=== PATIENT | female | born 1985 | race Hispanic/Latino ===

== ENCOUNTER 2017-05-07 20:14 | Emergency (ER) | payer BC, OTHER ==
[2017-05-07] MEDS ORDERED: Lactated Ringer's 1,000 ML IV SCH (21:15)
[2017-05-07 21:31] VITALS: BMI 41.3
[2017-05-07 22:14] LABS: RBC URINE 2 /hpf (0-3); URINE BACTERIA FEW (<OCC); URINE BILIRUBIN NEGATIVE (NEGATIVE); URINE BLOOD NEGATIVE (NEGATIVE); URINE COLOR YELLOW (YELLOW); URINE GLUCOSE (UA) NEG (Normal); URINE KETONE 20 mg/dL (NEGATIVE); URINE LEUKOCYTE ESTERASE NEG Leu/uL (Negative); URINE PROTEIN NEGATIVE (NEGATIVE); URINE UROBILINOGEN 0.2-1.0 mg/dL (0.2-1.0); WBC URINE 2 /hpf (0-5)
[2017-05-08 03:15] VITALS: BP 111/70; PULSE 88
--- NOTE | 2017-05-08 08:33 | OBHP ---
Datetime: 05/07/2017 21:14 IP Adm Impression: Term, intrauterine IP Admit Plan: Observation/Evaluation; Discharge home Admit Comment, IP Provider: CC: Ctx HPI: 32 YO 37.3wks IUP presents to [facility] for ctx. Per pt, ctx started around 1PM and have inte nsified over the past few hours. They started [id number] and now are q6 mins. Pt endorses good FM, no BV , no LOF and endorses ctx. ObHx: 2 EAB @4-8wks, 1x elective termination @ 20 wks for anencephaly GynHx: Normal Paps per pt, hx of chlamydia (per chart review) PMH: denies SurgHx: appendectomy 2009, togue tied surg at 16 FH: hx of cancer in materal side of family SH: denies smoking, ETOH, and illicit drug use Allergies: Penicillin-rash Meds: PNV PE: VS stable GEN: NAD, uncomfortably with ctx Cardio: S1S2 no M/G/R resp: vesicular breathing b/l Abdomen: Gravid, NT, BS+ neuro: AAO x 3 Extre: minimal edema bilaterally Cervx: closed/high monitor: 120, moderate variability-catagory I bedside u/s: vertex presentation Assessment/Plan: 32 YO @ 37.3 wks IUP (MELLISSA 05/25/17) presents to [facility] for ctx. -continue monitor -vitals -administer IV fluids -clean catch UA -will continue to observe and reevaluate Pt reassesed and reevaluated. She states that her ctx are not as often as when she came. s/p IV fl uids, UA appreciated was neg. Encouraged to increase fluid intake. Pt not currently in active labor. Given labor precautions. Follow up with provider, next apt on 05/10/17. Phyllis Molina, PGY I OB attending addendum: Patient seen and examined by me with Dr. Maria. Agree with above assessment and plan. I: Emigdio Erazo. False Labor P: Labor precautions Follow-up with OB appointment as scheduled Increase water intake. Pelvic Type - PN: Adequate Extremities - PN: Normal Abdomen - PN: Normal Back - PN: Not Done Breast - PN: Normal Lungs - PN: Normal Heart - PN: Normal Thyroid - PN: Not Done Neurologic - PN: Normal HEENT - PN: Normal General - PN: Normal FHR - Baseline A Provider: 120 EGA AdmitDate IP: 37.3 Vital Signs Provider: Reviewed; Within Normal Limits IP Chief Complaint: Uterine contractions NICHD Variability Prov Fetus A: Moderate 6-25bpm NICHD Accel Fetus A IP Provider: 15X15 FHR Category Provider Fetus A: Category I Dilatation, Provider: closed Station, Provider: high Genitourinary Exam: Normal DTRs - PN: Not Done Datetime: 05/01/2017 19:14 Membranes, Provider: Intact Contraction Comments Provider: Q2-5 NICHD Decel Fetus A IP Provider: None Effacement, Provider: 0
== END 2017-05-07 22:40 | disposition home or self-care (01) ==
LOC: H.EROB2 20:14
DX: O26.93 Pregnancy related conditions, unspecified, third trimester (principal); R10.2 Pelvic and perineal pain; O47.1 False labor at or after 37 completed weeks of gestation; Z3A.37 37 weeks gestation of pregnancy; O09.293 Supervision of pregnancy with other poor reproductive or obstetric history, third trimester
CPT/HCPCS: 81003; 99283; J7120

== ENCOUNTER 2017-05-26 08:58 | Inpatient (IN) | payer BC, OTHER ==
[2017-05-27 20:35] VITALS: BMI 43.0
[2017-05-27 21:42] LABS: BASO # 0.1 K/uL (0.0-0.2); BASO % 0.5 % (0.0-2.0); EOS # 0.2 K/uL (0.0-0.7); EOS % 1.2 % (0.0-4.0); LYMPH # 2.8 K/uL (1.0-4.3); LYMPH % 20.8 % (20.0-40.0); MEAN CELL VOLUME 84.2 fl (81.0-99.0); MEAN CORPUSCULAR HEMOGLOBIN 27.8 pg (27.0-31.0); MEAN PLATELET VOLUME 9.8 fl (7.2-11.7); MONO # 0.8 K/uL (0.0-0.8); MONO % 5.6 % (0.0-10.0); NEUT # 9.6 K/uL (1.8-7.0); NEUT % 71.9 % (50.0-75.0); RED CELL DISTRIBUTION WIDTH 13.7 % (11.5-14.5); WHITE BLOOD COUNT 13.4 K/uL (4.8-10.8)
--- NOTE | 2017-05-28 07:11 | OBADHP ---
Datetime: 05/27/2017 21:30 Admit Comment, IP Provider: IUP at 40+w EDC May 25 sent for IOL. post date; no SROM/VB/CTX. ..She had +FM PNC: CP Dr Briones PMH: obese PSH: denies NKA POBH: 3 elective TOP; TOP for anencephaly PGYNH: Hx Chl 2009 ; HPV 2015 A: IUP at 40w postdate preg obese PLAN: admit to L_D Discussion with pt about IOL, labor, delivery, medications, pain management, delivrey and postpart um care. She agrees to start with Cervidil - placend intravaginally Pelvic Type - PN: Adequate Extremities - PN: Normal Abdomen - PN: Normal Back - PN: Normal Lungs - PN: Normal Heart - PN: Normal Thyroid - PN: Normal Neurologic - PN: Normal HEENT - PN: Normal General - PN: Abnormal Presentation-Admit: Vertex FHR - Baseline A Provider: 120 Membranes, Provider: Intact Pool Provider: Negative IP Hx Assessment: The History has been Reviewed and is Current IP Chief Complaint: Other NICHD Variability Prov Fetus A: Moderate 6-25bpm NICHD Accel Fetus A IP Provider: 15X15 FHR Category Provider Fetus A: Category I NICHD Decel Fetus A IP Provider: None Dilatation, Provider: 0 Effacement, Provider: 0 Station, Provider: high Genitourinary Exam: Normal DTRs - PN: Normal EGA AdmitDate IP: 40.2 IP Adm Impression: Term, intrauterine ; No Active Labor; Intact Membranes IP Admit Plan: Admit to unit; Initiate labor induction protocol Datetime: 05/07/2017 21:14 Breast - PN: Normal Vital Signs Provider: Reviewed; Within Normal Limits Datetime: 05/01/2017 19:14 Contraction Comments Provider: Q2-5 Datetime: 05/01/2017 13:42 IP Chief Complaint Other: abdominal pain Nitrazine Provider: Negative
--- NOTE | 2017-05-28 11:20 | OBPN ---
Datetime: 05/28/2017 11:15 IP Progress Impression Other: Post-dates IP Procedures: Sterile Vag Exam IP Progress Plan: Cervical Ripening Membranes, Provider: Intact FHR - Baseline A Provider: 130's IP Progress Note Comment: 32 yo at 40+3 wks for post-dates induction of labor s/p cervidil Will start oral misoprostol 50 mcg q 4 (max 6 doses) FHT reassuring GBS negative Vital Signs Provider: Reviewed NICHD Accel Fetus A IP Provider: 15X15 FHR Category Provider Fetus A: Category I NICHD Variability Prov Fetus A: Moderate 6-25bpm Dilatation, Provider: 0 Effacement, Provider: 60 Station, Provider: -3 NICHD Decel Fetus A IP Provider: None Datetime: 05/27/2017 21:30 Pool Provider: Negative Presentation-Admit: Vertex
[2017-05-28] MEDS: Lactated Ringer's 1,000 ML IV SCH (18:19)
[2017-05-28] MEDS ORDERED: Nalbuphine 20 mg/ml Inj (1 ml) IVP PRN (19:47)
[2017-05-29] MEDS: Lactated Ringer's 1,000 ML IV SCH ×2 (04:00→10:05)
--- NOTE | 2017-05-29 07:59 | OBPN ---
Datetime: 05/29/2017 07:48 IP Progress Impression Other: Failed induction IP Informed Consent Obtain: Section Delivery; Risks, Benefits and Alternatives Discussed IP Procedures: Sterile Vag Exam IP Progress Plan: Deliver- Section Membranes, Provider: Intact FHR - Baseline A Provider: 120's IP Progress Note Comment: 32 yo at 40+4 wks w/ failed induction of labor for post-dates Discussed w/ pt and her Consents for surgery and blood signed Will proceed w/ c/s today NICHD Accel Fetus A IP Provider: 15X15 FHR Category Provider Fetus A: Category I NICHD Variability Prov Fetus A: Moderate 6-25bpm Dilatation, Provider: 0 Effacement, Provider: 60 Station, Provider: -3 NICHD Decel Fetus A IP Provider: None
[2017-05-29] MEDS ORDERED: Oxytocin 30 UNITS in Sodium Chloride 0.9% 500 ML IV SCH (08:15)
[2017-05-29] MEDS ORDERED: Bicitra 30 ML UD PO ONE ×2 (09:01→09:18)
[2017-05-29] MEDS ORDERED: Phenylephrine 10 mg/ml Inj ONE (09:07)
[2017-05-29] MEDS ORDERED: ePHEDrine 50 mg/ml Inj ONE (09:08)
[2017-05-29] MEDS ORDERED: Morphine 1 mg/ml preservative-free Inj(Duramorph) ONE (09:09)
[2017-05-29] MEDS ORDERED: DiphenhydrAMINE 50 mg/ml Inj IVP PRN ×2 (12:05→13:48)
[2017-05-29] MEDS ORDERED: Oxycodone/Acetaminophen 5/325 mg Tab PO PRN ×2 (12:05→13:48)
[2017-05-29] MEDS ORDERED: Simethicone 80 mg Chewtab PO SCH (16:00)
[2017-05-29] MEDS: Simethicone 80 mg Chewtab PO SCH ×2 (16:02→22:52)
[2017-05-30 06:36] LABS: HEMATOCRIT 32.5 % (34.0-47.0); MEAN CELL VOLUME 83.3 fl (81.0-99.0); MEAN CORPUSCULAR HEMOGLOBIN 28.2 pg (27.0-31.0); MEAN CORPUSCULAR HGB CONC 33.9 g/dL (33.0-37.0); RED CELL DISTRIBUTION WIDTH 13.7 % (11.5-14.5)
[2017-05-30] MEDS: Simethicone 80 mg Chewtab PO SCH ×4 (07:34→21:47)
--- NOTE | 2017-05-30 09:36 | OBDS ---
[facility]IV[facility] PERSONNEL Delivery Doctor: Sue Briones MD Stitch Bonding Machine Tender: Nicole Baldwin RN Anesthesiologist: Monique Olguin MD MATERNAL INFORMATION Delivery Anesthesia: Spinal Medications in Delivery: Pitocin 30 mu/500 mL, Pitocin 20 mu/1000 mL Estimated Blood Loss (ml): 800 Placenta Cultured: No Maternal Complications: Other Other Maternal Complications: Failed Induction Provider Comments: Pre-op dx: 32 yo at 40+4 wks w/ failed induction of labor for post-dates Post-op dx: Same Procedure: Primary low transverse section Surgeon: [employer] Accounting Manager: Dr. Cortes Masters, the hospitalist Anesthesia: Spinal Findings: Viable female infant delivered through clear fluid at 11:46am, Apgars 9 and 9. Wt 8#8.8, 3875 gms Nl appearing uterus, tubes and ovaries. Complications: None EBL: 800mL LABOR SUMMARY EDC: 05/25/2017 00:00 No. Babies in Womb: 1 Attempted: No Labor Anesthesia: None LABOR INFORMATION Reason for Induction: Postterm Cervical Ripening Agents: Cervidil; Cytotec @ Oxytocin: N/A Group B Beta Strep: Negative Antibiotics # of Doses: 2 Antibiotics Time of Last Dose: 1003 Steroids Given: None Reason Steroids Not Administered: Not Applicable MEMBRANES Membranes Rupture Method: Artificial Rupture of Membranes: 05/29/2017 11:46 Length of Rupture (hrs): 0.00 Amniotic Fluid Color: Clear Amniotic Fluid Amount: Moderate Amniotic Fluid Odor: None STAGES OF LABOR Stage 3 hrs: 0 Stage 3 min: 1 CSECTION DELIVERY Primary Indication: Failed Induction CSection Urgency: Non Elective CSection Incidence: Primary Labor: Labor Elective: Nonelective CSection Incision: Lower Uterine Transverse BABY A INFORMATION Delivery Date/Time: 05/29/2017 11:46 Method of Delivery: Born in Route : No : N/A Forceps: N/A Vacuum Extraction: N/A Shoulder Dystocia : No SHOULDER DYSTOCIA BABY A Delivery Date/Time: 05/29/2017 11:46 PRESENTATION/POSITION BABY A Presentation: Cephalic Cephalic Presentation: Vertex Breech Presentation: N/A PLACENTA INFORMATION BABY A Placenta Delivery Time : 05/29/2017 11:47 Placenta Method of Delivery: Expressed Placenta Status: Delivered SCORES BABY A Heart Rate 1 min: >100 bpm Resp Effort 1 min: Good Cry Reflex Irritability 1 min: Cough or Sneeze or Pulls Away Muscle Tone 1 min: Active Motion Color 1 min: Body [place], Extremities Blue Resuscitation Effort 1 min: N/A SCORE 1 MIN: 9 Heart Rate 5 min: >100 bpm Resp Effort 5 min: Good Cry Reflex Irritability 5 min: Cough or Sneeze or Pulls Away Muscle Tone 5 min: Active Motion Color 5 min: Body [place], Extremities Blue Resuscitation Effort 5 min: N/A SCORE 5 MIN: 9 INFORMATION BABY A Gestational Age at Delivery: 40.3 Gestational Status: Term Outcome : Liveborn Infant Condition : Stable Infant Sex: Female IDENTIFICATION/MEDS BABY A ID Band Number: [id number] ID Band Location: Left Leg; Left Arm WEIGHT/LENGTH BABY A Birthweight (gms): 3875 Infant Weight (lb): 8 Weight (oz): 9 CORD INFORMATION BABY A No. Cord Vessels: 3 Nuchal Cord : Around Neck x1, Loose Cord Blood Taken: Yes Suction: Mouth; Nose
--- NOTE | 2017-05-30 14:54 | OBPPN ---
Datetime: 05/30/2017 14:49 PP Pain Prov: Within normal limits PP Nausea Prov: Denies PP Flatus Prov: Yes PP Breasts Prov: Normal PP Heart Prov: Normal PP Lungs Prov: Normal PP Abdomen/Uterus Prov: Normal PP Lochia Prov: Normal PP Vulva/Perineum Prov: Normal PP CVA Tenderness Prov: Normal PP Extremities Prov: Normal PP Comments Phys Exam Prov: fundus under umbilicus incision clean/dry/intact PP Impression Prov: Normal progression PP Plan Prov: Continue present management PP Progress Note Prov: Patient denies CP, no SOB, no N/V, tolerating PO diet, ambulating/voiding wel l, mild lochia, +flatus, abdominal pain tolerable with meds A/P POD #1 1. Reg diet 2. Motrin/Percocet prn pain 3. Colace/dulcolax prn constipation 4. Encourage ambulation/ IP PP Procedures: None Vital Signs Provider PP: Reviewed; Within Normal Limits
[2017-05-30] MEDS: Oxycodone/Acetaminophen 5/325 mg Tab PO PRN ×2 (15:49→20:14)
[2017-05-31] MEDS: Oxycodone/Acetaminophen 5/325 mg Tab PO PRN ×4 (01:29→21:30)
[2017-05-31] MEDS: Simethicone 80 mg Chewtab PO SCH ×5 (05:14→21:31)
--- NOTE | 2017-05-31 09:21 | OBPPN ---
Datetime: 05/31/2017 09:18 PP Pain Prov: Within normal limits PP Nausea Prov: Denies PP Flatus Prov: Yes PP Breasts Prov: Not Done PP Heart Prov: Normal PP Lungs Prov: Normal PP Abdomen/Uterus Prov: Normal PP Lochia Prov: Not Done PP Vulva/Perineum Prov: Not Done PP CVA Tenderness Prov: Normal PP Extremities Prov: Normal PP C/S Incision Prov: Normal PP Progress Prov: Normal PP Impression Prov: Normal progression PP Progress Note Prov: Postoperative day #2 Patient doing well voiding without difficulty. Minimal lochia passing flatus Vital signs stable afebrile Incision clean dry and intact Extremities no Homans Postoperative day #2 Encourage ambulation, regular diet, analgesia as needed, anticipate discharge in a.m. Vital Signs Provider PP: Reviewed
[2017-06-01] MEDS: Oxycodone/Acetaminophen 5/325 mg Tab PO PRN (04:34)
[2017-06-01] MEDS: Simethicone 80 mg Chewtab PO SCH ×2 (04:35→09:08)
--- NOTE | 2017-06-01 08:39 | OP ---
PROCEDURE DATE: 05/29/2017 PREOPERATIVE DIAGNOSES: A 32-year-old 5, para 0-0-4-0 at 40 weeks and 4 days with failed induction of labor for postdate. POSTOPERATIVE DIAGNOSES: A 32-year-old 5, para 0-0-4-0 at 40 weeks and 4 days with failed induction of labor for postdate. PROCEDURE: Primary low transverse section. SURGEON: Rodolfo Briones MD. OPEN TENTER OPERATOR: Cortes Masters DO, the hospitalist. Dr. Masters was the surgical instrument technician and participated in the surgery for the entire duration of the case. He helped create exposure. He also helped maintain hemostasis, operated throughout the case on the side of the patient that was across from him and assisted in the delivery of the infant by applying fundal pressure. This case could not have been completed without his assistance. TYPE OF ANESTHESIA: Spinal. FINDINGS: A viable female infant delivered through clear fluid at 11:46 a.m. Apgars 9 and 9 at one and five minutes respectively. The weight was 8 pounds 8 ounces or 3875 grams. Normal-appearing uterus, tubes and ovaries. ESTIMATED BLOOD LOSS: About 800 mL. COMPLICATIONS: None. DESCRIPTION OF PROCEDURE: The patient was taken to the operating room where spinal was placed. The patient was prepped and draped in the usual sterile fashion in the dorsal supine position with a leftward tilt. The spinal was tested and found to be adequate. A Pfannenstiel skin incision was then made with a scalpel and carried through to the underlying layer of fascia with the Bovie. The fascia was incised in the midline and extended laterally with the Bovie over a Evette. The inferior aspect of the fascial incision was then grasped with the Maday clamps, elevated and the underlying rectus muscles were dissected off bluntly and with the Bovie. Attention was then turned to the superior aspect of this incision, which in a similar fashion was grasped, tented up with the Maday clamps and the rectus muscles were dissected off bluntly and with the Bovie. The rectus muscles were then in the midline. The peritoneum was identified, tented up and entered sharply with the Metzenbaum scissors. The peritoneal incision was then extended superiorly and inferiorly with good visualization of the bladder. The bladder blade was then inserted and the vesicouterine peritoneum was identified, grasped with pickups and entered sharply with the Metzenbaum scissors. The incision was then extended laterally and the bladder flap was created digitally. The bladder blade was then reinserted and lower uterine segment was incised in transverse fashion with the scalpel. The uterine incision was then extended laterally with a bandage scissors. The bladder blade was removed. The infant's head delivered atraumatically. The nose and mouth were bulb suctioned and the cord was clamped and cut. The infant was handed off to the awaiting library acquisitions technician. Cord blood was collected. The placenta was then delivered as the uterus was massaged. The uterus was then exteriorized and cleared of all clots and debris with a dry sponge curettage. The uterine incision was then repaired with 0 Vicryl in a running locked fashion. A [id number] stitch was then placed at the right side of the incision for hemostasis. The abdomen was then well irrigated. The uterus was then returned to the abdomen. The gutters were cleared of all clots. It should be mentioned that prior to the delivery of the baby, the right rectus muscle was cut about 2 cm to make more room for the baby to lift for the delivery. The peritoneum was then repaired with 2-0 chromic in a running fashion. A stitch was then placed to reapproximate the right rectus muscle where it had been cut. A single stitch of the 2-0 chromic was then placed to reapproximate the rectus muscle. The fascia was then reapproximated with 0 Vicryl in a running fashion. The subcutaneous fat was well irrigated. The Bovie was applied to small bleeders. Three layers of 2-0 plain gut in a running fashion were placed across the space of the fat. The skin was then closed in a subcuticular fashion with 4-0 Monocryl. The patient tolerated the procedure well. Sponge, lap and needle counts were correct x2. The patient had received 900 mg of clindamycin and a 130 mg of gentamicin prior to the procedure. The patient was taken to the recovery room in stable condition. Rodolfo Briones MD
[2017-06-01 18:43] VITALS: BP 97/65; PULSE 84; RESP 15; TEMP 97.4; O2SAT 97
== END 2017-06-01 13:45 | disposition home or self-care (01) | DRG 766 ==
LOC: H.L&D 05-27 20:13 → H.OB/GYN 05-29 15:24
PROVIDERS: ADMIT Obstetrics & Gynecology; ATTEND Obstetrics & Gynecology
PROC: 4A1HXCZ Monitoring of Products of Conception, Cardiac Rate, External Approach (ICD-10-PCS; 2017-05-27)
PROC: 3E033VJ Introduction of Other Hormone into Peripheral Vein, Percutaneous Approach (ICD-10-PCS; 2017-05-28)
PROC: 10D00Z1 Extraction of Products of Conception, Low, Open Approach (ICD-10-PCS; principal; 2017-05-29)
DX: O48.0 Post-term pregnancy (principal); O61.0 Failed medical induction of labor; O99.214 Obesity complicating childbirth; E66.9 Obesity, unspecified; O69.81X0 Labor and delivery complicated by cord around neck, without compression, not applicable or unspecified; Z3A.40 40 weeks gestation of pregnancy; Z37.0 Single live birth; Z88.0 Allergy status to penicillin